=== PATIENT | female | born 1955 | race Asian ===

== ENCOUNTER → 2022-04-08 | Outpatient (CLI) | payer OTHER ==
[~2022-04-08] MED LIST: ASPI-1450 PO; ATOR10TA84 PO; CARV25 PO; LOSA-381 PO; POTA8TAB71 PO
[2022-04-08 10:36] VITALS: BP 133/86
[2022-04-08 10:41] VITALS: BP 136/88
== END | disposition home or self-care (01) ==
LOC: CARDMN 08:22
PROVIDERS: ATTEND Internal Medicine Cardiovascular Disease
DX: I25.119 Atherosclerotic heart disease of native coronary artery with unspecified angina pectoris (principal); R07.9 Chest pain, unspecified
CPT/HCPCS: 93017

== ENCOUNTER 2022-04-10 07:03 | Inpatient (IN) | payer OTHER ==
[~2022-04-10] VITALS: Ht 157.5 cm; Wt 60.3 kg
[2022-04-10] VITALS (13 sets, daily range): BP systolic 112–138; BP diastolic 61–75
[2022-04-10] MEDS ORDERED: ASPI-1450 PO (07:18)
[2022-04-10] MEDS ORDERED: POTA8TAB71 PO (07:18)
[2022-04-10] MEDS ORDERED: ATOR10TA84 PO (07:18)
[2022-04-10] MEDS ORDERED: CARV25 PO (07:18)
[2022-04-10] MEDS ORDERED: LOSA-381 PO (07:18)
[2022-04-10] MEDS ORDERED: NITROGLYCERIN 2% (1 GM=INCH) PACKET TP ONE (08:15)
[2022-04-10] MEDS ORDERED: ASPIRIN 325 MG TABLET PO ONE (08:15)
[2022-04-10] MEDS ORDERED: SODIUM CHLORIDE 0.9% 1,000 ML IV ONE (08:15)
[2022-04-10] MEDS ORDERED: ATORVASTATIN CALCIUM 40 MG TABLET PO ONE (08:15)
[2022-04-10 08:41] LABS: BASOPHILS % (AUTO) 0.8 % (0.0-2.0); EOSINOPHILS % (AUTO) 2.6 % (1.0-6.0); HEMATOCRIT 31.3 % (36-46); HEMOGLOBIN 10.5 g/dL (12.0-16.0); LYMPHOCYTES # (AUTO) 1.6 K/uL (1.0-4.8); LYMPHOCYTES % (AUTO) 17.4 % (22.0-44.0); MEAN CORPUSCULAR HEMOGLOBIN 28.6 pg (26.0-34.0); MEAN CORPUSCULAR HGB CONC 33.5 G/dL (31.0-37.0); MEAN CORPUSCULAR VOLUME 86 fL (80-100); MONOCYTES # (AUTO) 0.6 K/uL (0.1-1.0); MONOCYTES % (AUTO) 5.8 % (2.0-9.0); NEUTROPHILS # (AUTO) 6.9 K/uL (1.8-7.7); NEUTROPHILS % (AUTO) 73.4 % (40.0-70.0); PLATELET COUNT (AUTO) 282 K/uL (150-450); RED BLOOD CELL COUNT(AUTO) 3.66 MIL/uL (4.00-5.20); RED CELL DISTRIBUTION WIDTH 14.3 % (11.5-14.5)
[2022-04-10 08:52] LABS: PROTHROMBIN TIME 10.3 SEC (9.4-11.6)
[2022-04-10 08:59] LABS: ANION GAP 11 mmol/L (8-16); CALCIUM, TOTAL 9.3 mg/dL (8.8-10.5); CARBON DIOXIDE 22 mmol/L (22-29); CHLORIDE 105 mmol/L (98-107); CREATININE 1.36 mg/dL (0.60-1.30); GLOMERULAR FILTR. RATE CALC 39 mL/min (>60); GLUCOSE,RANDOM 139 mg/dL (70-110); SODIUM SERUM 138 mmol/L (136-145); UREA NITROGEN, BLOOD 17 mg/dL (7-18)
[2022-04-10 09:02] LABS: LACTIC ACID 2.4 mmol/L (0.4-2.0)
[2022-04-10 09:04] LABS: ALANINE AMINOTRANSFERASE 17 U/L (12-78); ALBUMIN 3.8 g/dL (3.4-5.0); ALKALINE PHOSPHATASE 86 U/L (46-116); ASPARTATE AMINOTRANSFERASE 14 U/L (15-37); BILIRUBIN,TOTAL 0.4 mg/dL (0.1-1.0); LIPASE 124 U/L (73-393); TOTAL PROTEIN, SERUM 7.9 g/dL (6.4-8.2)
[2022-04-10 09:05] LABS: B-TYPE NATRIURETIC PEPTIDE 36 pg/mL (0-100)
[2022-04-10 09:47] LABS: COVID AG,FIA SOURCE NASOPHARYNGEAL
[2022-04-10] MEDS ORDERED: HEPARIN SODIUM 1000 UNITS/NS 1,000 ML ONE (10:32)
[2022-04-10] MEDS ORDERED: IOHEXOL 300 MG/ML 50 ML VIAL ONE ×2 (10:32→10:46)
[2022-04-10] MEDS ORDERED: SODIUM BICARBONATE 50 MEQ/50 ML VIAL ONE (10:32)
[2022-04-10] MEDS ORDERED: LIDOCAINE/PF 1% 30 ML VIAL ONE (10:32)
[2022-04-10] MEDS ORDERED: FentaNYL CITRATE PF 100 MCG/2 ML VIAL ONE (11:25)
[2022-04-10] MEDS ORDERED: MIDAZOLAM HCL 2 MG/2 ML VIAL ONE (11:25)
[2022-04-10] MEDS ORDERED: IOHEXOL 300 MG/ML 50 ML VIAL ICOR ONE (11:30)
[2022-04-10] MEDS ORDERED: LIDOCAINE 1% 30 ML/SOD BICARB 8.4% 4 ML SQ ONE (11:30)
[2022-04-10] MEDS ORDERED: HEPARIN SODIUM 1000 UNITS/NS 1,000 ML IARTER ONE (11:30)
[2022-04-10] MEDS ORDERED: FentaNYL CITRATE PF 100 MCG/2 ML VIAL IVP ONE (11:45)
[2022-04-10] MEDS ORDERED: MIDAZOLAM HCL 2 MG/2 ML VIAL IVP ONE (11:45)
[2022-04-10] MEDS ORDERED: MAGNESIUM HYDROXIDE SUSPENSION 30 ML UDCUP PO PRN (12:30)
[2022-04-10] MEDS ORDERED: ZOLPIDEM TARTRATE 5 MG TABLET PO PRN (12:30)
[2022-04-10] MEDS ORDERED: ACETAMINOPHEN 325 MG TABLET PO PRN (12:30)
[2022-04-10] MEDS ORDERED: MORPHINE SULFATE 2 MG/ML SYRINGE IVP PRN (12:30)
[2022-04-10] MEDS ORDERED: ONDANSETRON HCL 4 MG/2 ML VIAL IVP PRN (12:30)
[2022-04-10] MEDS ORDERED: ALBUTEROL SULFATE 2.5 MG/0.5 ML NEB SOLUTION NEB PRN (12:30)
[2022-04-10] MEDS ORDERED: HYDROCODONE/ACETAMINOPHEN 5-325 MG TABLET PO PRN (12:30)
[2022-04-10] MEDS ORDERED: IPRATROPIUM BROMIDE 0.5 MG/2.5 ML NEB SOLUTION NEB PRN (12:30)
[2022-04-10] MEDS ORDERED: BISACODYL 10 MG RECTAL RECTAL SUPPOSITORY PR PRN (12:30)
[2022-04-10] MEDS ORDERED: ONDANSETRON HCL 4 MG/2 ML VIAL ONE (13:03)
[2022-04-10] MEDS ORDERED: ONDANSETRON HCL 4 MG/2 ML VIAL IVP ONE (13:15)
[2022-04-10] MEDS: HEPARIN SODIUM,PORCINE 5,000 UNITS/ML VIAL SQ SCH (15:51)
[2022-04-10] MEDS: CARVEDILOL 6.25 MG TABLET PO SCH (21:27)
[2022-04-10] MEDS: DOCUSATE SODIUM 100 MG CAPSULE PO SCH (21:27)
[2022-04-11 00:03] VITALS: BP 120/68
[2022-04-11] MEDS: HEPARIN SODIUM,PORCINE 5,000 UNITS/ML VIAL SQ SCH ×3 (00:56→16:19)
[2022-04-11 04:17] VITALS: BP 126/64
[2022-04-11 07:48] VITALS: BP 126/70
[2022-04-11] MEDS: PANTOPRAZOLE SODIUM 40 MG DR TABLET PO SCH (08:25)
[2022-04-11] MEDS: ASPIRIN 81 MG CHEWABLE TABLET PO SCH (08:25)
[2022-04-11] MEDS: DOCUSATE SODIUM 100 MG CAPSULE PO SCH ×2 (08:25→20:26)
[2022-04-11] MEDS: CARVEDILOL 6.25 MG TABLET PO SCH (08:25)
[2022-04-11] MEDS: LOSARTAN POTASSIUM 50 MG TABLET PO SCH (08:25)
[2022-04-11] MEDS: ATORVASTATIN CALCIUM 40 MG TABLET PO SCH (08:25)
[2022-04-11] MEDS ORDERED: CARVEDILOL 25 MG TABLET PO SCH (09:00)
[2022-04-11] MEDS ORDERED: ATORVASTATIN CALCIUM 10 MG TABLET PO SCH (09:00)
[2022-04-11] MEDS ORDERED: ASPIRIN 81 MG CHEWABLE TABLET PO SCH (09:00)
[2022-04-11] MEDS ORDERED: LOSARTAN POTASSIUM 25 MG TABLET PO SCH (09:00)
[2022-04-11 11:18] VITALS: BP 124/66
[2022-04-11 16:17] VITALS: BP 133/70
[2022-04-11 20:00] VITALS: BP 141/76
[2022-04-11] MEDS: CARVEDILOL 12.5 MG TABLET PO SCH (20:26)
[2022-04-12] MEDS: HEPARIN SODIUM,PORCINE 5,000 UNITS/ML VIAL SQ SCH ×2 (00:20→09:12)
[2022-04-12 00:32] VITALS: BP 128/72
[2022-04-12 04:00] VITALS: BP 126/80
[2022-04-12 08:12] VITALS: BP 136/77
[2022-04-12] MEDS: ATORVASTATIN CALCIUM 40 MG TABLET PO SCH (09:10)
[2022-04-12] MEDS: LOSARTAN POTASSIUM 50 MG TABLET PO SCH (09:12)
[2022-04-12] MEDS: CARVEDILOL 12.5 MG TABLET PO SCH (09:12)
[2022-04-12] MEDS: PANTOPRAZOLE SODIUM 40 MG DR TABLET PO SCH (09:12)
[2022-04-12] MEDS: ASPIRIN 81 MG CHEWABLE TABLET PO SCH (09:12)
[2022-04-12] MEDS: DOCUSATE SODIUM 100 MG CAPSULE PO SCH (09:12)
== END 2022-04-12 10:30 | disposition short-term general hospital (02) | DRG 192 ==
LOC: EMS 07:06 → 5S 10:45
PROVIDERS: ADMIT Hospitalist; ATTEND Hospitalist
PROC: 4A023N7 Measurement of Cardiac Sampling and Pressure, Left Heart, Percutaneous Approach (ICD-10-PCS; principal; 2022-04-10)
PROC: B2111ZZ Fluoroscopy of Multiple Coronary Arteries using Low Osmolar Contrast (ICD-10-PCS; 2022-04-10)
DX: T82.855A Stenosis of coronary artery stent, initial encounter (principal); N17.9 Acute kidney failure, unspecified; I25.110 Atherosclerotic heart disease of native coronary artery with unstable angina pectoris; E11.9 Type 2 diabetes mellitus without complications; I10 Essential (primary) hypertension; M19.90 Unspecified osteoarthritis, unspecified site; Y84.8 Other medical procedures as the cause of abnormal reaction of the patient, or of later complication, without mention of misadventure at the time of the procedure; Z20.822 Contact with and (suspected) exposure to COVID-19; E78.5 Hyperlipidemia, unspecified; Z95.5 Presence of coronary angioplasty implant and graft; Z82.49 Family history of ischemic heart disease and other diseases of the circulatory system; Z63.4 Disappearance and death of family member; Y92.89 Other specified places as the place of occurrence of the external cause
CPT/HCPCS: 71045; 80053; 83605; 83690; 83735; 83880; 84484; 85025; 85610; 85730; 93005; 93306; 99291; G0378; J1644; J2250; J2405; J3010; J3490; J7030; Q9967; 36415-L1; 36415-TC